=== PATIENT | female | born 1980 | race Caucasian/White ===

== ENCOUNTER 2017-12-14 15:13 | Inpatient (IN) | payer BC, SELFPAY ==
[2017-12-14 15:31] VITALS: BP 116/74; PULSE 84; RESP 16; TEMP 37.2; O2SAT 100; BMI 20.9
[2017-12-14 15:39] VITALS: BP 116/74; PULSE 84; RESP 16; TEMP 37.2
--- NOTE | 2017-12-14 15:50 | PCM.HP.STD ---
Problem List (1) Opioid withdrawal Status: Acute (2) Drug abuse Status: Chronic History of Present Illness Date of Admission: 12/14/17 Chief Complaint: Restlessness, shakiness and nausea. The patient is a 37 year old F with past medical history significant for drug abuse presented to the [facility] office requesting admission for medical stabilization for opioid withdrawal. She has been snorting heroin for the last 12 years intermittently but she has been doing it almost every day over the last few months. Her last use was yesterday. Since yesterday, she has been having symptoms of shakiness, restless and and anxiety, could not stay still, associated with watery eyes as well as abdominal cramps and nausea. She complains of abdominal pain, described as cramps, intermittent, mild, associated with profound nausea without vomiting, without aggravating or relieving factors. Today, she could not eat or drink since morning because of this nausea. No chest pain or shortness of breath. Denied cough or sputum production. At this time, her vital signs are stable. Her routine blood work was unremarkable. LFT was normal. She is being admitted for opioid withdrawal for medical stabilization. 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 Denies: Anorexia, Chills, Fever, Weakness Eyes: Denies: Blurred vision, Double vision, Drainage, Redness HEENT: Denies: Difficulty Hearing, Ear Pain, Eye Pain, Nasal Congestion, Sore Throat Cardiovascular: Denies: Chest Pain, Chest Pressure, Chest Tightness, Heaviness, Palpitations, Syncope Respiratory: Denies: Cough, Hemoptysis, Pleuritic Pain, Shortness of Breath, Sputum production, Wheezing Gastrointestinal: Reports: Abdominal Pain, Nausea. Denies: Constipation, Diarrhea, Vomiting Genitourinary: Denies: Dysuria, Frequency, Hematuria Musculoskeletal: Denies: Arm Pain, Back Pain, Foot Pain Skin: Denies: Dryness, Rash Neurological: Denies: Balance problems, Change in Speech, Slurred speech, Confusion, Focal weakness, Headaches, Numbness Psychiatric: Reports: Anxiety. Denies: Depression Endocrine: Denies: Change in Body Habitus, Polydipsia VTE Information - Inpt Only VTE Present on Admission: No VTE Mechan Device Prophylaxis: None VTE Pharm Prophylaxis ordered?: No Patient Problems: Active and Suspected Problems Opioid withdrawal (Acute) - Physical Exam General: Alert, Oriented x3, Cooperative, No apparent distress HEENT: Atraumatic, PERRLA, EOMI Oral: Moist Mucosa, No Gingival or Mucosal Lesions/ Ulcerations Neck: Supple, No JVD, Negative Carotid Bruits, Trachea Midline, Thyroid Normal Size and Texture Lungs: Clear to auscultation, Normal air movement, No rhonchi, No wheeze, No rales Cardiovascular: Regular rate, Regular Rhythm, Normal S1, Normal S2, No murmurs Abdomen: Bowel Sounds Present, Soft, Non Tender, Non-Distended, No Hepato-splenomegaly Extremities: No clubbing, No cyanosis, No edema Skin: No rashes, No breakdown Lymphatic: No Cervical, Supraclavicular, or Inguinal Adenopathy Neurological: Cranial nerves II-XII grossly intact, Motor Exam 5/5 strength throughout Psych/Mental Status: Normal Affect, Appropriate, Alert and oriented to time, place, person, mood and affect Vital Signs Temp Pulse Resp BP Pulse Ox 98.9 F 84 16 116/74 100 12/14/17 15:31 12/14/17 15:31 12/14/17 15:31 12/14/17 15:31 12/14/17 15:31 Oxygen Delivery Method Room Air Weight: 107 lb 6.4 oz Body Mass Index (BMI) 20.9 Assessment/Plan Active and Suspected Problems Opioid withdrawal (Acute) This is a 37 years old female patient admitted for opioid withdrawal for medical stabilization. #1 opiate withdrawal: Patient has been snorting heroin for almost 12 years, on-off. Last use was yesterday. At this time, vital signs are stable. Routine blood work was unremarkable. LFT was normal. Plan: Admit to [facility] floor, serum test, blood alcohol level, urine drug screen, pro time and INR, initiate [facility] protocol with tapering course of Subutex, as needed Catapres, Bentyl, Vistaril, Imodium, methocarbamol, Zofran, Mirapex and Seroquel. #2 drug abuse: Patient has been snorting heroin for almost 12 years. Plan as above. #3 DVT prophylaxis: Low risk patient, no prophylaxis indicated. This note was generated with [employer] dictation software. It may contain incorrect words, spelling, and punctuation that were not noted in checking the note before signing. Code Visit Inpatient E&M: 85890 Init Hosp L2
[2017-12-14] MEDS: Buprenorphine HCl 2 MG TAB.SUBL SL (16:09)
[2017-12-14] MEDS: cloNIDine HCl 0.1 MG Tablet PO ×2 (16:13→21:47)
[2017-12-14] MEDS: Dicyclomine 10 MG Capsule 20 MG PO (16:13)
[2017-12-14] MEDS: Ondansetron ODT 4 MG Tablet PO (16:13)
[2017-12-14 16:23] LABS: Absolute Lymphocyte Count 1.93 X10^3/ul (0.83-4.51); Absolute Neutrophil Count 6.6 X10^3/uL (2.0-7.7); Basophil# 0.03 X10^3/uL; Basophil% 0.3 % (0-1); Eosinophil# 0.01 X10^3/uL; Eosinophils% 0.1 % (0-5); Hematocrit 42.6 % (37-47); Hemoglobin 14.5 g/dl (12.0-15.0); Lymphocyte # 1.93 X10^3/ul (4.0); Lymphocyte % 21.5 % (19-41); Mean Corpuscular Hgb 32.2 pg (27.0-32.0); Mean Corpuscular Volume 94.7 fL (81-99); Mean Platelet Vol. 8.8 fl (6.2-12.0); Monocyte# 0.41 X10^3/uL; Monocyte% 4.6 % (0-10); Neutrophil # 6.58 X10^3/uL (2.7-7.7); Neutrophil % 73.4 % (47-70); POSITIVE COUNT NO; POSITIVE DIFFERENTIAL NO; POSITIVE MORPHOLOGY NO; Platelet Count 244 K/mm3 (150-450); RBC Distribution Width CV 12.5 % (11.6-14.6); RBC Distribution Width SD 43.3 fl (35.1-43.9)
[2017-12-14 16:41] LABS: ALB/GLOB Ratio 1.1 RATIO (0.9-2.4); AST(SGOT) 12 U/L (15-37); Alanine Aminotransfer ALT/SGPT 15 U/L (13-56); Albumin, Serum 3.9 g/dL (3.2-5.0); Alkaline Phosphatase 42 U/L (45-117); Anion Gap 8 (5-15); BUN 9 mg/dL (7-18); BUN/Creat Ratio 15.6 RATIO (10-20); Calcium,Total 8.8 mg/dL (8.5-10.1); Chloride 109 mmol/L (98-107); Creatinine, Serum 0.58 mg/dL (0.55-1.02); EST Glomerular Filtration Rate 126 mL/min (>60); Est Glom Filt Rate - Afr Amer 152 mL/min (>60); Estimated Creatinine Clearance 97.24 ml/min; Globulin 3.4 g/dL (2.2-4.2); Glucose 88 mg/dL (74-106); International Normalized Ratio 1.1; Potassium 3.7 mmol/L (3.5-5.1); Protein, Total 7.3 g/dL (6.4-8.2); Prothrombin Time (Protime)PT. 13.8 SECONDS (11.7-14.9); Sodium Level 145 mmol/L (136-145)
[2017-12-14 17:04] LABS: Alcohol, Blood (Medical)-Serum < 3.0 mg/dL
[2017-12-14 17:05] LABS: Pregnancy, Serum, hCG Quali. NEGATIVE Negative (0-9 Nonpreg)
[2017-12-14] MEDS: Methocarbamol 750 MG Tablet PO (20:01)
[2017-12-14 20:03] VITALS: BP 92/51; PULSE 65; RESP 16; TEMP 36.6
[2017-12-14 20:07] VITALS: O2SAT 97
[2017-12-14] MEDS: Pramipexole Di-HCl 0.25 MG Tablet PO (21:47)
[2017-12-14] MEDS: hydrOXYzine PAM 25 MG Capsule 50 MG PO (21:47)
[2017-12-14 22:29] LABS: Amphetamine Urine VISTA NEGATIVE (<1000 ng/mL); Barbiturate Urine VISTA NEGATIVE (< 200 ng/mL); Benzodiazepine Urine VISTA NEGATIVE (< 200 ng/mL); Cocaine Urine VISTA NEGATIVE (< 300 ng/mL); Ecstacy Urine VISTA NEGATIVE (< 500 ng/mL); Methadone Urine VISTA NEGATIVE (< 300 ng/mL); PCP Urine VISTA NEGATIVE (< 25 ng/mL); THC Urine VISTA NEGATIVE (< 50 ng/mL); Vista UDS pH Range 7
[2017-12-15 00:06] VITALS: BP 90/50; PULSE 60; RESP 16; TEMP 36.8
[2017-12-15] MEDS: Buprenorphine HCl 2 MG TAB.SUBL SL ×4 (00:16→23:59)
[2017-12-15] MEDS: cloNIDine HCl 0.1 MG Tablet PO ×4 (00:16→21:09)
[2017-12-15 04:20] VITALS: BP 92/50; PULSE 60; RESP 16; TEMP 36.6
[2017-12-15] MEDS: Methocarbamol 750 MG Tablet PO (04:23)
[2017-12-15] MEDS: hydrOXYzine PAM 25 MG Capsule 50 MG PO (04:23)
[2017-12-15 08:30] VITALS: BP 91/60; PULSE 75; RESP 14; TEMP 36.9
--- NOTE | 2017-12-15 10:53 | PN_ITS ---
Patient Problems: Active and Suspected Problems Opioid withdrawal (Acute) Subjective: CC: Restlessness, shakiness and nausea. Objective: Patient presented with symptom complex of opiate withdrawal, she reports today that her symptoms are improving. Vitals/I&O's: Vital Signs Temp Pulse Resp BP Pulse Ox 98.4 F 75 14 91/60 97 12/15/17 08:30 12/15/17 08:30 12/15/17 08:30 12/15/17 08:30 12/14/17 20:07 Oxygen Delivery Method Room Air Weight: 48.716 kg Body Mass Index (BMI) 20.9 Intake and Output for Last 24 Hours 12/13/17 12/14/17 12/15/17 23:59 23:59 23:59 Intake Total 300 / 300 360 / 360 Balance 300 / 300 360 / 360 General: Alert, Oriented x3 Oral: Moist Mucosa Neck: Supple, No JVD Lungs: Clear to auscultation Cardiovascular: Regular rate, Normal S1, Normal S2 Abdomen: Bowel Sounds Present, Soft, Non Tender, Non-Distended Extremities: No edema Neurological: Neuro grossly intact Laboratory Results 12/14/17 16:12: Ethyl Alcohol < 3.0 12/14/17 16:12: WBC 9.0, RBC 4.50, Hgb 14.5, Hct 42.6, MCV 94.7, MCH 32.2 H, MCHC 34.0, RDW 12.5, RDW Differential 43.3, Plt Count 244, MPV 8.8, Immature Gran % (Auto) 0.100, Neut % (Auto) 73.4 H, Lymph % (Auto) 21.5, Mccone % (Auto) 4.6, Eos % (Auto) 0.1, Baso % (Auto) 0.3, Absolute Neuts (auto) 6.6, Absolute Lymphs (auto) 1.93, Total Counted Not Reportable 12/14/17 16:12: Sodium 145, Potassium 3.7, Chloride 109 H, Carbon Dioxide 28.0, Anion Gap 8, BUN 9, Creatinine 0.58, Estim Creat Clear Calc 97.24, Est GFR (MDRD ) Af Amer 152, Est GFR (MDRD) Non-Af 126, BUN/Creatinine Ratio 15.6, Glucose 88 , Calcium 8.8, Total Bilirubin 0.40, AST 12 L, ALT 15, Alkaline Phosphatase 42 L , Total Protein 7.3, Albumin 3.9, Globulin 3.4, Albumin/Globulin Ratio 1.1 12/14/17 16:12: Serum , Qual NEGATIVE 12/14/17 16:12: PT 13.8, INR 1.1 12/14/17 21:45: Urine Opiates Screen POSITIVE H, Urine Methadone Screen NEGATIVE , Ur Barbiturates Screen NEGATIVE, Ur Phencyclidine Scrn NEGATIVE, Ur Amphetamines Screen NEGATIVE, U Methamphetamin-MDMA NEGATIVE, U Benzodiazepines Scrn NEGATIVE, Urine Cocaine Screen NEGATIVE, U Cannabinoids Screen NEGATIVE, Ur Drug Screen Comment Current Medications Acetaminophen (Tylenol) 500 mg PO Q4H PRN PRN PRN Reason: Temp > 100.4 F Buprenorphine HCl (Buprenorphine Hcl) 4 mg SL Q8H JENNIFER PRN Reason: Taper Stop: 12/17/17 19:59 Last Admin: 12/15/17 08:39 Dose: 4 mg Clonidine (Catapres) 0.1 mg PO Q2H PRN PRN PRN Reason: Hot/Cold Sweats or Anxiety Last Admin: 12/15/17 04:23 Dose: 0.1 mg Dicyclomine HCl (Bentyl) 20 mg PO Q6H PRN PRN PRN Reason: Abdomnial Discomfort Last Admin: 12/14/17 16:13 Dose: 20 mg Hydroxyzine Pamoate (Vistaril Pamoate Capsule) 50 mg PO Q6H PRN PRN PRN Reason: Mild Anxiety (score 1/3) Last Admin: 12/15/17 04:23 Dose: 50 mg Loperamide HCl (Imodium) 2 - 4 mg PO UD PRN PRN Reason: LOOSE STOOLS Methocarbamol (Methocarbamol) 750 mg PO Q6H PRN PRN PRN Reason: Muscle Aches Last Admin: 12/15/17 04:23 Dose: 750 mg Ondansetron HCl (Zofran Odt) 4 mg PO Q6H PRN PRN PRN Reason: NAUSEA Last Admin: 12/14/17 16:13 Dose: 4 mg Pramipexole Dihydrochloride (Mirapex) 0.25 mg PO Q12H PRN PRN PRN Reason: Restless Legs Last Admin: 12/14/17 21:47 Dose: 0.25 mg Quetiapine Fumarate (Seroquel) 25 mg PO Q6H PRN PRN PRN Reason: Moderate Anxiety (score 2/3) Medical Necessity - Tobacco Use Smoking Status: Former smoker Assessment/Plan Active and Suspected Problems Opioid withdrawal (Acute) his is a 37 years old female patient admitted for opioid withdrawal for medical stabilization. 1 Acute opiate withdrawal; will continue on the [facility] protocol for medical stabilization. 2. Drug Use disorder; the patient is recommended to follow-up for outpatient drug rehabilitation after discharge 3 early ambulation for DVT prophylaxis.
[2017-12-15] MEDS: QUEtiapine 25 MG Tablet PO ×2 (11:55→21:09)
[2017-12-15 13:50] VITALS: BP 93/55; PULSE 73; RESP 16; TEMP 36.9
--- NOTE | 2017-12-15 16:30 | CHAPLAIN ---
Type of Pastoral Visit _x__ Initial Visit ___ Follow-up Visit ___ On-call Visit ___ General Patient Visit ___ Spiritual Assessment ___ Family Conference ___ Bereavement ___ Rapid Response ___ Code Blue ___ Other (describe below) Pastoral Care Referral From _x__ Patient ___ Family ___ Nurse ___ Physician ___ Change Management Consultant ___ Mine Superintendent ___ Other (describe below) Sacrament/Intervention ___ Active listening ___ Anointing ___ Hoahaoism ___ Bereavement ___ Communion ___ Caterina exploration ___ _x__ Life review ___ Prayer ___ Reconciliation ___ Sacrament of Sick _x__ Supportive presence ___ Wedding ___ Other (describe below) Pastoral Comments
[2017-12-15 16:35] VITALS: BP 105/62; PULSE 74; RESP 16; TEMP 37.1
[2017-12-15 20:59] VITALS: BP 105/68; PULSE 64; RESP 16; TEMP 37
[2017-12-16 08:30] VITALS: BP 115/72; PULSE 75; RESP 14; TEMP 37
[2017-12-16] MEDS: Acetaminophen 500 MG Tablet PO (08:40)
[2017-12-16] MEDS: Dicyclomine 10 MG Capsule 20 MG PO (08:40)
[2017-12-16] MEDS: Buprenorphine HCl 2 MG TAB.SUBL SL ×2 (08:45→20:24)
--- NOTE | 2017-12-16 10:29 | CASEMGMT ---
Pt needed FMLA papers completed, otherwise her employer would fire her. SW and physician completed the FMLA papers, had pt sign release, and gave pt the papers to give to her employer. SW remains available for any additional needs. AGATHA Candelario, [employer]
--- NOTE | 2017-12-16 11:15 | PCM.PN.HOSP ---
Patient Problems: Active and Suspected Problems Opioid withdrawal (Acute) Subjective: CC: symptom complex of opiate withdrawal Objective: She reports improved symptoms today, she is wondering if she can be prescribed a sleeping pill at the time of her discharge. Vitals/I&O's: Vital Signs Temp Pulse Resp BP Pulse Ox 98.6 F 75 14 115/72 97 12/16/17 08:30 12/16/17 08:30 12/16/17 08:30 12/16/17 08:30 12/14/17 20:07 Oxygen Delivery Method Room Air Weight: 48.716 kg Body Mass Index (BMI) 20.9 Intake and Output for Last 24 Hours 12/14/17 12/15/17 12/16/17 23:59 23:59 23:59 Intake Total 300 / 300 1776 / 1776 120 / 120 Balance 300 / 300 1776 / 1776 120 / 120 General: Alert, Oriented x3 HEENT: Atraumatic Oral: Moist Mucosa Neck: Supple, Negative Carotid Bruits Lungs: Clear to auscultation Cardiovascular: Regular rate, Normal S1, Normal S2 Abdomen: Bowel Sounds Present, Non Tender, Non-Distended Extremities: No edema Current Medications Acetaminophen (Tylenol) 500 mg PO Q4H PRN PRN PRN Reason: Temp > 100.4 F Last Admin: 12/16/17 08:40 Dose: 500 mg Buprenorphine HCl (Buprenorphine Hcl) 2 mg SL Q12H JENNIFER PRN Reason: Taper Stop: 12/17/17 19:59 Last Admin: 12/16/17 08:45 Dose: 2 mg Clonidine (Catapres) 0.1 mg PO Q2H PRN PRN PRN Reason: Hot/Cold Sweats or Anxiety Last Admin: 12/15/17 21:09 Dose: 0.1 mg Dicyclomine HCl (Bentyl) 20 mg PO Q6H PRN PRN PRN Reason: Abdomnial Discomfort Last Admin: 12/16/17 08:40 Dose: 20 mg Hydroxyzine Pamoate (Vistaril Pamoate Capsule) 50 mg PO Q6H PRN PRN PRN Reason: Mild Anxiety (score 1/3) Last Admin: 12/15/17 04:23 Dose: 50 mg Loperamide HCl (Imodium) 2 - 4 mg PO UD PRN PRN Reason: LOOSE STOOLS Methocarbamol (Methocarbamol) 750 mg PO Q6H PRN PRN PRN Reason: Muscle Aches Last Admin: 12/15/17 04:23 Dose: 750 mg Ondansetron HCl (Zofran Odt) 4 mg PO Q6H PRN PRN PRN Reason: NAUSEA Last Admin: 12/14/17 16:13 Dose: 4 mg Pramipexole Dihydrochloride (Mirapex) 0.25 mg PO Q12H PRN PRN PRN Reason: Restless Legs Last Admin: 12/14/17 21:47 Dose: 0.25 mg Quetiapine Fumarate (Seroquel) 25 mg PO Q6H PRN PRN PRN Reason: Moderate Anxiety (score 2/3) Last Admin: 12/15/17 21:09 Dose: 25 mg Medical Necessity - Tobacco Use Smoking Status: Former smoker Assessment/Plan All Active Problems Opioid withdrawal (Acute) 1 Acute opiate withdrawal; will continue on the [facility] protocol for medical stabilization. 2. Drug Use disorder; the patient is recommended to follow-up for outpatient drug rehabilitation after discharge 3 early ambulation for DVT prophylaxis.
[2017-12-16 14:20] VITALS: BP 108/68; PULSE 85; RESP 18; TEMP 36.9
[2017-12-16] MEDS: Docusate Sodium 100 MG Capsule PO (14:21)
[2017-12-16] MEDS: cloNIDine HCl 0.1 MG Tablet PO (14:21)
[2017-12-16 20:16] VITALS: BP 116/76; PULSE 80; RESP 16; TEMP 36.8
[2017-12-16] MEDS: QUEtiapine 25 MG Tablet PO (22:11)
[2017-12-17 06:00] VITALS: BP 94/59; PULSE 61; RESP 16; TEMP 36.6
[2017-12-17] MEDS: Buprenorphine HCl 2 MG TAB.SUBL SL (07:43)
[2017-12-17 07:45] VITALS: BP 97/72; PULSE 70; RESP 14; TEMP 36.8
[2017-12-17] MEDS: Docusate Sodium 100 MG Capsule PO (07:48)
--- NOTE | 2017-12-17 09:06 | PCM.DC ---
- Discharge Diagnoses Current Active Problems: Current Active and Chronic Problems Opioid withdrawal (Acute) Drug abuse (Chronic) You will use the following diet at home:: Regular Discharge Activity: Return to Normal Activity Allergies/Adverse Reactions: Allergies ciprofloxacin [From Cipro] Allergy (Verified 02/17/17 17:47) Unknown ciprofloxacin HCl [From Cipro] Allergy (Verified 02/17/17 17:47) Unknown levofloxacin [From Levaquin] Allergy (Verified 02/17/17 17:47) Unknown Medications to take at Discharge traZODone [Desyrel] 50 mg PO QHS #10 tab 12/17/17 The following prescriptions were given: traZODone [Desyrel] 50 mg PO QHS #10 tab Primary Care Physician: Care Physician,No Primary [Primary Care Provider] - In 1 Week Proposed Discharge Date: 12/17/17
--- NOTE | 2017-12-17 09:07 | PCM.DC.SUM ---
Discharge Date and Diagnosis Date of Admission: 12/14/17 Date of Discharge: 12/17/17 - Primary Discharge Diagnosis Active and Suspected Problems Opioid withdrawal (Acute) - Secondary Discharge Diagnosis Chronic Problems Drug abuse (Chronic) Hospital Course and Treatment Summary of Care Provided: The patient is a 37 year old F with past medical history of chronic Suboxone dependency who presented to the hospital with symptom complex of opiate withdrawal she was tried to quit use of Suboxone. This included anxiety, restlessness, , abdominal pain, back pain left carotid and irritability. She was admitted to regular medical floor and started on the [facility] opiate withdrawal protocol for medical stabilization. Her symptoms ultimately resolved and she was discharged home in a stable condition. Exam at the time of discharge; vital signs were stable. He was alert and oriented to time place and person. He did not appear to be any form of distress. S1 and S2 heard no murmur or gallop Lung exam was clear to auscultation with no adventitious sounds. Abdomen was soft nontender with normal bowel sounds. extremity exam did not reveal any edema, palpable pulses bilaterally. Neurologic exam was grossly intact. Discharge Diet: No Restrictions Discharge Activity: Return to Normal Activity Home Medications: Medications to take at Discharge traZODone [Desyrel] 50 mg PO QHS #10 tab 12/17/17 Following Prescrptions Were Given to Patient: traZODone [Desyrel] 50 mg PO QHS #10 tab Primary Care Physician: Care Physician,No Primary [Primary Care Provider] - In 1 Week Medical Necessity - Tobacco Use Smoking Status: Former smoker Meaningful Use Info Meaningful Use Diagnoses (Choose all that apply): None applicable Code Visit Inpatient E&M: 38455 Disch Hosp
== END 2017-12-17 10:15 | disposition home or self-care (01) | DRG 897 ==
PROVIDERS: Admitting Provider Hospitalist; Visit Provider Internal Medicine
DX: F11.23 Opioid dependence with withdrawal (principal); Z87.891 Personal history of nicotine dependence
CPT/HCPCS: 36415; 80053; 80307; 80320; 84703; 85025; 85610; G0480

== ENCOUNTER 2018-01-20 00:21 | Emergency (ER) | payer BC, SELFPAY ==
[2018-01-20 00:22] VITALS: BP 118/87; PULSE 74; RESP 16; TEMP 37.4; O2SAT 94; BMI 19.4
--- NOTE | 2018-01-20 00:39 | ED.VISSUMM ---
- ER Visit Summary Date of Service: 01/20/18 Chief Complaint: Nausea and vomiting History of Present Illness: The patient is a 37 F who presents for 3 days of nausea and vomiting. Patient last used heroin on Wednesday and started Suboxone later that day. She was in withdrawal at the time of starting the Suboxone, with nausea and vomiting. She initially took 16 mg of Suboxone, and today had 8 mg which is her standard dose now. She has not had control of the nausea and vomiting, but denies any other withdrawal symptoms. She denies abdominal pain, diarrhea, fever, chills, tremors. Her doctor prescribed her Zofran for her nausea and vomiting which is not helping. She has been unable to keep any fluids or food down since yesterday. Patient no longer has periods due to having Mirena, but is sexually active and does not know her status. Patient smokes but denies any other substance use, denies alcohol use. No other medical problems. Physical Examination: Vital signs: afebrile, hemodynamically stable, no hypoxia on room air General: well nourished, well developed, in no distress but appears like she does not feel well, frequently yawning Skin: warm, dry, no rash, no pallor HEENT: normocephalic and atraumatic; PERRL, EOMI, tacky mucous membranes Cardiovascular: regular rate and rhythm without murmurs, no peripheral edema, 2+ pulses all distal extremities Respiratory: No increased work of breathing, lungs are clear to auscultation bilaterally, no rales, rhonchi or wheezing Abdominal: Abdomen is soft, tender in the epigastrium with hyperactive bowel sounds, no guarding or rebound, no masses MSK: Moves all extremities, no deformities, normal strength Neuro: Awake and alert, oriented ?4. No facial droop, sensation and motor function intact and symmetric Test Results: Abnormal Lab Results 01/20/18 01/20/18 01/20/18 00:35 00:35 00:45 WBC 10.6 RBC 5.20 Hgb 17.2 H Hct 49.1 H MCV 94.4 MCH 33.1 H MCHC 35.0 RDW 12.2 RDW Differential 41.6 Plt Count 303 MPV 9.2 Immature Gran % (Auto) 0.200 Neut % (Auto) 73.9 H Lymph % (Auto) 16.9 L [place] % (Auto) 8.6 Eos % (Auto) 0.1 Baso % (Auto) 0.3 Absolute Neuts (auto) 7.9 H Absolute Lymphs (auto) 1.79 Total Counted Not Reportable Sodium 141 Potassium 3.7 Chloride 100 Carbon Dioxide 32.0 Anion Gap 9 BUN 22 H Creatinine 0.92 Estim Creat Clear Calc 60.90 Est GFR (MDRD) Af Amer 89 Est GFR (MDRD) Non-Af 74 BUN/Creatinine Ratio 23.9 H Glucose 120 H Calcium 9.8 Total Bilirubin 1.10 H AST 18 ALT 23 Alkaline Phosphatase 50 Total Protein 9.0 H Albumin 4.7 Globulin 4.3 H Albumin/Globulin Ratio 1.1 Lipase 116 Urine Color Yellow Urine Clarity Sl. Cloudy Urine pH 8.0 Ur Specific [place] 1.015 Urine Protein 30 H Urine Glucose (UA) Normal Urine Ketones Negative Urine Occult Blood 150 H Urine Nitrite Negative Urine Bilirubin Negative Urine Urobilinogen 1 H Ur Leukocyte Esterase 25 H Urine RBC 0 SEEN Urine WBC 0 SEEN Ur Squamous Epith Cells 0 SEEN Amorphous Sediment 2+ Urine Bacteria 0 SEEN Urine Mucus 0 SEEN Urine Test Negative Emergency Department Course and Treatment: Patient presents with nausea and vomiting, with decreased p.o. intake since initiating Suboxone treatment for heroin addiction. Patient's symptoms have not been controlled with outpatient Zofran. Given that she has had poor oral intake for 3 days, patient was given IV hydration and labs were checked to evaluate for electrolyte derangements. Since patient has the epigastric tenderness with the nausea and vomiting, workup was also performed to evaluate for other causes of nausea and vomiting, including pancreatitis. Labs were consistent with mild dehydration. No significant electrolyte derangements. Lipase was normal. negative. Patient received Phenergan to help with her nausea. In the emergency department. No alternative cause for patient's symptoms was identified other than the heroin withdrawal. Patient felt better after receiving hydration and Phenergan. Since patient has not slept well since Wednesday when she last used heroin, she was given a single dose of Ativan in the emergency department to help her sleep tonight. Tomorrow she will continue her Suboxone and Zofran therapy. If she continues to have issues with nausea and vomiting she is to follow-up with her doctor to discuss further changes in her medication regimen. Patient agreed with this plan and was discharged home with a ride and with symptoms improved. Treatment Plan: [] Disposition: [] Impression: Nausea and vomiting secondary to heroin withdrawal, mild dehydration This note was generated with [employer] dictation software. It may contain incorrect words, spelling, and punctuation that were not noted in review of the chart prior to signing ED Disposition - Plan for ED Patient: Disposition: Home or Assisted Living Chief Complaint: Nausea/Vomiting Instructions: ED Withdrawal Narcotic, ED Nausea Vomiting Referrals: Care Physician,No Primary [Primary Care Provider] - Doctor,Your [STAFF PHYSICIAN] - 1-2 Days if not improving Additional Instructions: Please continue taking your Suboxone as prescribed and continue using Zofran as needed for nausea and vomiting. If you continue to have poorly controlled symptoms, please follow-up with Dr. Das in the next 1-2 days. If you have any worsening of your condition or any new concerning symptoms, please return immediately to the emergency department for another evaluation.
[2018-01-20 00:44] LABS: Absolute Lymphocyte Count 1.79 X10^3/ul (0.83-4.51); Absolute Neutrophil Count 7.9 X10^3/uL (2.0-7.7); Basophil# 0.03 X10^3/uL; Basophil% 0.3 % (0-1); Eosinophil# 0.01 X10^3/uL; Eosinophils% 0.1 % (0-5); Hematocrit 49.1 % (37-47); Hemoglobin 17.2 g/dl (12.0-15.0); Lymphocyte # 1.79 X10^3/ul (4.0); Lymphocyte % 16.9 % (19-41); Mean Corpuscular Hgb 33.1 pg (27.0-32.0); Mean Corpuscular Volume 94.4 fL (81-99); Mean Platelet Vol. 9.2 fl (6.2-12.0); Monocyte# 0.91 X10^3/uL; Monocyte% 8.6 % (0-10); Neutrophil # 7.86 X10^3/uL (2.7-7.7); Neutrophil % 73.9 % (47-70); Platelet Count 303 K/mm3 (150-450); RBC Distribution Width CV 12.2 % (11.6-14.6); RBC Distribution Width SD 41.6 fl (35.1-43.9); White Blood Count 10.6 K/mm3 (4.4-11.0)
[2018-01-20 00:45] LABS: POSITIVE COUNT NO; POSITIVE DIFFERENTIAL NO; POSITIVE MORPHOLOGY NO
[2018-01-20 00:49] LABS: Bacteria 0 SEEN /hpf (None Seen); Mucous, Urine 0 SEEN /hpf (<or=2+); Red Blood Cells-Urine 0 SEEN /hpf (0-5); Squamous Epithelial Cells - UA 0 SEEN /hpf (5-10); White Blood Cells 0 SEEN /hpf (0-5)
[2018-01-20] MEDS: Lactated Ringers 1,000 ML 999 ML IV (00:49)
[2018-01-20] MEDS: proMETHazine 25 MG/ML Syringe 12.5 MG IV (00:50)
[2018-01-20 00:51] LABS: Color, Urine Yellow (Yellow); Glucose, Dipstick Normal (Normal); Ketone-Dipstick Negative (Negative); Leukocyte Esterase-Dipstick 25 /ul (Negative); Nitrite-Dipstick Negative (Negative); Occult Blood-Urine 150 /ul (Negative); Protein-Dipstick 30 mg/dl (Negative); Specific Gravity, Urine 1.015 (1.002-1.030); Urine Bilirubin Dipstick Negative (Negative); Urine Clarity Sl. Cloudy (Clear); Urine Urobilinogen 1 mg/dl (Normal)
[2018-01-20 00:57] LABS: Amorphous Sediment 2+; Internal QC Validated? YES +Cl - CLEAR BKGD; Pregnancy, Urine Negative Negative
[2018-01-20 00:59] LABS: ALB/GLOB Ratio 1.1 RATIO (0.9-2.4); AST(SGOT) 18 U/L (15-37); Alanine Aminotransfer ALT/SGPT 23 U/L (13-56); Albumin, Serum 4.7 g/dL (3.2-5.0); Alkaline Phosphatase 50 U/L (45-117); Anion Gap 9 (5-15); BUN 22 mg/dL (7-18); BUN/Creat Ratio 23.9 RATIO (10-20); Calcium,Total 9.8 mg/dL (8.5-10.1); Chloride 100 mmol/L (98-107); Creatinine, Serum 0.92 mg/dL (0.55-1.02); EST Glomerular Filtration Rate 74 mL/min (>60); Est Glom Filt Rate - Afr Amer 89 mL/min (>60); Globulin 4.3 g/dL (2.2-4.2); Glucose 120 mg/dL (74-106); Lipase 116 U/L (73-393); Potassium 3.7 mmol/L (3.5-5.1); Sodium Level 141 mmol/L (136-145)
--- NOTE | 2018-01-20 01:41 | ED.DEP ---
ED Disposition - Plan for ED Patient: Disposition: Home or Assisted Living Chief Complaint: Nausea/Vomiting Instructions: ED Nausea Vomiting, ED Withdrawal Narcotic Referrals: Care Physician,No Primary [Primary Care Provider] - Doctor,Your [STAFF PHYSICIAN] - 1-2 Days if not improving Additional Instructions: Please continue taking your Suboxone as prescribed and continue using Zofran as needed for nausea and vomiting. If you continue to have poorly controlled symptoms, please follow-up with Dr. Das in the next 1-2 days. If you have any worsening of your condition or any new concerning symptoms, please return immediately to the emergency department for another evaluation.
[2018-01-20] MEDS: LORazepam 1 MG Tablet PO (01:42)
[2018-01-20 01:52] VITALS: BP 141/85; PULSE 63; RESP 18; O2SAT 100
== END 2018-01-20 01:52 | disposition home or self-care (01) ==
PROVIDERS: Emergency Provider Emergency Medicine
DX: F11.23 Opioid dependence with withdrawal (principal); R11.2 Nausea with vomiting, unspecified; E86.0 Dehydration; Z72.0 Tobacco use
CPT/HCPCS: 80053; 81001; 81025; 83690; 85025; 96361; 96374; 99284; J7120; A4216

== ENCOUNTER → 2018-04-11 11:00 | Outpatient (CLI) | payer BC, SELFPAY ==
--- NOTE | 2018-04-08 | BRBX_PTH ---
PATIENT: ERIK PAULINO LOC: [facility] U#:[id number] AGE/SX: 45/F ROOM: RE04/11/[address]: Dr. Ayaka Guevara MD : [id number] BED: DIS: SPEC #: [id number] RECD: 04/11/18 13:54 STATUS: SAMUEL SERAFIN #: [id number] WOODY: 04/08/18 00:[address]: Ayaka Guevara DEPT: SURGICAL PATHOLOGY RECD BY: Clinton Dooley ENTERED: 04/11/18 13:55 SP TYPE: BREAST BX DAVID DR: No Primary Care Phys Tissues: Right breast, NOS Procedures: Surgery Specimen Level IV HEADER OPERATION: Right stereotactic breast biopsy PRE-OP DIAGNOSIS: Right lower outer deep posterior microcalcifications TISSUE SUBMITTED: Right breast core tissue ISCHEMIC TIME: 1 minute FIXATION TIME: 8 hours MICROSCOPIC DIAGNOSIS Right breast, lower outer deep posterior microcalcifications, stereotactic core biopsy: Fibrocystic changes, adenosis and intraductal hyperplasia without atypia. Frequent microcalcifications. Negative for malignancy. RALF:wiley 04/12/18 COMMENT Correlation with clinical, radiologic findings and appropriate follow up are necessary. Case has been reviewed in consultation with Dr. Hernandez who concurs with the above diagnosis. IDC:AM MICROSCOPIC DESCRIPTION Slides are reviewed. GROSS DESCRIPTION Received is one container labeled with the patient's name and not further designated. The specimen consists of multiple elongated fragments of wang-yellow fibroadipose tissue that in aggregate measure 3 x 2.5 x 0.3 cm. The entire specimen is submitted in one cassette. / RALF:wiley 04/11/18 TC:4 CPT: 50677
--- NOTE | 2018-04-11 15:51 | PCM.OPRPT ---
Report of Operation Date of Procedure: 04/11/18 Pre-Operative Diagnosis: abnormal calcifications on right breast mammograms Post-Operative Diagnosis: same Surgery/Procedure Performed:: right breast stereotactic breast biopsy Description of Surgical Findings:: upper mid breast calcifications of right breast Type of Anesthesia:: Local - 1%xylocaine Specimen's removed: right breast tissue Estimated Blood Loss (mL): < 1 Fluids Replaced: none Description of Procedure: After informed consent was given, the patient was brought into the breast biopsy suite. Appropriate time out protocol was followed. She was then placed in the prone position on the stereotactic biopsy table. The patients right breast was then placed at the opening at the head of the table. A tester operator helper compression mammogram was then obtained in the CC view. The suspicious radiological lesion was then identified. Stereo pictures of the lesion were then taken for XYZ coordinates. The Mammotome biopsy stylus was then positioned where it would be entering into the patients right breast. The skin at this site was then cleansed with a surgical skin preparation. The skin and subcutaneous tissues at this site were then infiltrated with 1% xylocaine. A small skin incision was made with an 11 blade scalpel. The biopsy stylus was then positioned into the patients breast at the proper coordinates of depth. Using the Mammotome vacuum-assist device, several core samples of breast tissue were obtained. A specimen mammogram was the obtained and revealed that calcifications were within the specimen. A hemostatic marker clip was then placed into the biopsy cavity and a tester operator helper film revealed that it was properly deployed. The patient was then placed in the supine position and pressure was applied to the breast until no active bleeding was noted. The placement of the marker clip was superficial therefore the skin edges were reapproximated with 3-0 nylon suture. Opsite was applied. A unilateral mammogram in the CC and MLO view were then taken which revealed that the marker clip was in the same area as the previous suspicious lesion. The patient tolerated the procedure well and was discharged from the breast biopsy suite in good condition. - Complications none noted
--- NOTE | 2018-04-11 15:54 | OP.PCM_ITS ---
Report of Operation Date of Procedure: 04/11/18 Pre-Operative Diagnosis: abnormal calcifications on right breast mammograms Post-Operative Diagnosis: same Surgery/Procedure Performed:: right breast stereotactic breast biopsy Description of Surgical Findings:: upper mid breast calcifications of right breast Type of Anesthesia:: Local - 1%xylocaine Specimen's removed: right breast tissue Estimated Blood Loss (mL): < 1 Fluids Replaced: none Description of Procedure: After informed consent was given, the patient was brought into the breast biopsy suite. Appropriate time out protocol was followed. She was then placed in the prone position on the stereotactic biopsy table. The patient?s right breast was then placed at the opening at the head of the table. A pouncing lathe operator compression mammogram was then obtained in the CC view. The suspicious radiological lesion was then identified. Stereo pictures of the lesion were then taken for XYZ coordinates. The Mammotome biopsy stylus was then positioned where it would be entering into the patient?s right breast. The skin at this site was then cleansed with a surgical skin preparation. The skin and subcutaneous tissues at this site were then infiltrated with 1% xylocaine. A small skin incision was made with an 11 blade scalpel. The biopsy stylus was then positioned into the patient?s breast at the proper coordinates of depth. Using the Mammotome vacuum-assist device, several core samples of breast tissue were obtained. A specimen mammogram was the obtained and revealed that calcifications were within the specimen. A hemostatic marker clip was then placed into the biopsy cavity and a pouncing lathe operator film revealed that it was properly deployed. The patient was then placed in the supine position and pressure was applied to the breast until no active bleeding was noted. The placement of the marker clip was superficial therefore the skin edges were reapproximated with 3- 0 nylon suture. Opsite was applied. A unilateral mammogram in the CC and MLO view were then taken which revealed that the marker clip was in the same area as the previous suspicious lesion. The patient tolerated the procedure well and was discharged from the breast biopsy suite in good condition. - Complications none noted
== END ==
PROVIDERS: Visit Provider Surgery
DX: N60.11 Diffuse cystic mastopathy of right breast (principal); N60.21 Fibroadenosis of right breast; N60.91 Unspecified benign mammary dysplasia of right breast
CPT/HCPCS: 19081; 88305; J7050